=== PATIENT | female | born 2005 | race African-American/Black ===

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

== ENCOUNTER 2023-09-19 18:19 | Emergency (ER) | payer OTHER, SELFPAY ==
--- OUTSIDE RECORDS SUMMARY | 2023-09-19 18:23 | XMS REPORT | Continuity of Care Document ---
Author Name Unknown Address [address] [place] [address] [place]. [address] th[address] Address [address] [facility] [place]. 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
[2023-09-19] MEDS ORDERED: dexAMETHasone 10 MG/ML VIAL ONE (19:09)
[2023-09-19 19:13] LABS: SARS-CoV-2 Antigen CONTROL BLUE LINE VIS/BG OK; SARS-CoV-2 Antigen Rapid Res Negative (Negative)
--- NOTE | 2023-09-19 19:37 | ER ---
Nurse's Notes [facility] Name: Hasmukh Francis Age: 18 yrs Sex: Female : 2005 Arrival Date: 09/19/2023 Time: 18:19 Bed 10 Private MD: Diagnosis: Acute tonsillitis, unspecified Presentation: 09/18 18:39 Chief complaint: Patient states: swollen tonsils and fever. Coronavirus screen: At this as6 time, the client does not indicate any symptoms associated with coronavirus-19. Ebola Screen: No symptoms or risks identified at this time. Initial Sepsis Screen: Does the patient meet any 2 criteria? No. Patient's initial sepsis screen is negative. Does the patient have a suspected source of infection? No. Patient's initial sepsis screen is negative. Risk Assessment: Do you want to hurt yourself or someone else? Patient reports no desire to harm self or others. Onset of symptoms was September 15, 2023. 18:39 Method Of Arrival: Ambulatory as6 18:39 Acuity: PILAR 4 as6 Historical: - Allergies: 18:40 No Known Allergies; as6 - PMHx: 18:40 None; as6 - PSHx: 18:40 Foot - Right; as6 - Immunization history:: Adult Immunizations up to date. - Infectious Disease History:: Denies. - Social history:: Smoking status: Reported history of juuling and/or vaping. Screenin:18 [facility] ED Fall Risk Assessment (Adult) History of falling in the last 3 months, mb9 including since admission No falls in past 3 months (0 pts) Confusion or Disorientation No (0 pts) Intoxicated or Sedated No (0 pts) Impaired Gait No (0 pts) Mobility Assist Device Used No (0 pt) Altered Elimination No (0 pt) Score/Fall Risk Level 0 - 2 = Low Risk Oriented to surroundings, Maintained a safe environment, Educated pt \T\ family on fall prevention, incl call for assistance when getting out of bed. Abuse screen: Denies threats or abuse. Nutritional screening: No deficits noted. Tuberculosis screening: No symptoms or risk factors identified. Assessment: 19:18 General: Appears in no apparent distress. Behavior is calm, cooperative. Pain: mb9 Complains of pain in throat Quality of pain is described as throbbing. Neuro: Level of Consciousness is awake, alert, obeys commands, Oriented to person, place, time, situation, Appropriate for age. Cardiovascular: Patient's skin is warm and dry. Respiratory: Airway is patent Respiratory effort is even, unlabored, Respiratory pattern is regular, symmetrical. GI: No signs and/or symptoms were reported involving the gastrointestinal system. : No signs and/or symptoms were reported regarding the genitourinary system. EENT: Throat is reddened. Derm: Skin is pink, warm \T\ dry. Musculoskeletal: Range of motion: intact in all extremities. Vital Signs: 18:39 BP 135 / 76; Pulse 69; Resp 18; Temp 97.9; Pulse Ox 98% ; Weight 87.54 kg; Height 5 ft. as6 10 in. ; Pain 7/10; 19:45 BP 128 / 77; Pulse 74; Resp 18; Pulse Ox 100% on R/A; mb9 18:39 Body Mass Index 27.69 (87.54 kg, 177.8 cm) - Percentile 88.7 % as6 18:39 Pain Scale: Adult as6 ED Course: 18:23 Patient arrived in ED. im 18:24 Ana Santamaria FNP-C is [facility]. kb 18:24 Frank Rivera MD is Attending Physician. kb 18:39 Arm band placed on left wrist. as6 18:40 Triage completed. as6 18:50 SARS-COV-2 Antigen Rapid Sent. as6 18:50 Strep Sent. as6 18:50 Flu Sent. as6 19:08 Keely Alvarez, BERT is Primary Nurse. mb9 19:22 Placed in gown. Bed in low position. Call light in reach. Side rails up X 1. Client mb9 placed on continuous cardiac and pulse oximetry monitoring. NIBP monitoring applied. 19:23 No provider procedures requiring assistance completed. Patient did not have IV access mb9 during this emergency room visit. Administered Medications: 19:14 Not Given (Physician Discretion): Decadron - [id number] mg IVP once mb9 19:15 Drug: Dexamethasone IM 10 mg IM once Route: IM; Site: right deltoid; mb9 19:46 Follow up: Response: No adverse reaction mb9 Medication: 19:23 VIS not applicable for this client. mb9 Outcome: 19:37 Discharge ordered by . kb 19:45 Discharged to home ambulatory, mb9 19:45 Condition: stable 19:45 Discharge instructions given to patient, Instructed on discharge instructions, follow up and referral plans. Demonstrated understanding of instructions, follow-up care, medications, Prescriptions given X 1, 19:46 Patient left the ED. mb9 Signatures: Ana Santamaria, SECTION GANG WORKER-C SECTION GANG WORKER-Arsalan Riggins RN RN as6 Keely Alvarez RN RN mb9 Светлана Ledesma
--- NOTE | 2023-09-19 19:38 | EDPHYS ---
Physician Documentation [facility] Name: Hasmukh Francis Age: 18 yrs Sex: Female : 2005 Arrival Date: 09/19/2023 Time: 18:19 Bed 10 Private MD: ED Physician Frank Rivera HPI: 09/18 23:37 This 18 yrs old Black Female presents to ER via Ambulatory with complaints of Flu kb Symptoms. 23:37 Pt is a 18 year old female who presents for cough, congestion, chills and sore throat kb that started 4 days ago. Unknown fever. Denies n/v/d.. Historical: - Allergies: 18:40 No Known Allergies; as6 - PMHx: 18:40 None; as6 - PSHx: 18:40 Foot - Right; as6 - Immunization history:: Adult Immunizations up to date. - Infectious Disease History:: Denies. - Social history:: Smoking status: Reported history of juuling and/or vaping. ROS: 23:35 Constitutional: As per HPI kb Exam: 23:35 Constitutional: This is a well developed, well nourished patient who is awake, alert, kb and in no acute distress. Head/Face: Normocephalic, atraumatic. ENT: Moist Mucous membranes Cardiovascular: Regular rate Respiratory: Respirations even and unlabored. No increased work of breathing. Talking in full sentences Abdomen/GI: Soft, non-tender. No distention Skin: Warm, dry with normal turgor. Normal color. MS/ Extremity: Pulses equal, no cyanosis. Neurovascular intact. Full, normal range of motion. Neuro: Awake and alert, GCS 15, oriented to person, place, time, and situation. Moves all extremities. Normal gait. 23:36 ENT: Posterior pharynx: Tonsils: bilaterally enlarged, with erythema, swelling, that is kb moderate, erythema, that is moderate, Vital Signs: 18:39 BP 135 / 76; Pulse 69; Resp 18; Temp 97.9; Pulse Ox 98% ; Weight 87.54 kg; Height 5 ft. as6 10 in. ; Pain 7/10; 19:45 BP 128 / 77; Pulse 74; Resp 18; Pulse Ox 100% on R/A; mb9 18:39 Body Mass Index 27.69 (87.54 kg, 177.8 cm) - Percentile 88.7 % as6 18:39 Pain Scale: Adult as6 MDM: 18:24 Patient medically screened. kb 23:36 Differential diagnosis: strep, tonsillitis, flu, covid, uri. Data reviewed: vital kb signs, nurses notes. Counseling: I had a detailed discussion with the patient and/or guardian regarding the historical points, exam findings, and any diagnostic results supporting the discharge/admit diagnosis, lab results, the need for outpatient follow up, a family practitioner, to return to the emergency department if symptoms worsen or persist or if there are any questions or concerns that arise at home. 09/18 18:44 Order name: Flu; Complete Time: 19:17 as09/18 18:44 Order name: Strep; Complete Time: 19:17 as09/18 18:44 Order name: SARS-COV-2 Antigen Rapid; Complete Time: 19:17 as6 09/18 19:16 Order name: Throat Culture EDMS Administered Medications: 19:14 Not Given (Physician Discretion): Decadron - [id number] mg IVP once mb9 19:15 Drug: Dexamethasone IM 10 mg IM once Route: IM; Site: right deltoid; mb9 19:46 Follow up: Response: No adverse reaction mb9 Disposition Summary: 09/19/23 19:37 Discharge Ordered Notes: Location: Home kb Condition: Stable kb Diagnosis - Acute tonsillitis, unspecified kb Followup: kb - With: Emergency Department - When: As needed - Reason: Worsening of condition Followup: kb - With: Private Physician - When: 2 - 3 days - Reason: Recheck today's complaints, Continuance of care, Re-evaluation by your physician Discharge Instructions: - Tonsillitis, [id number] kb - Discharge Summary Sheet as6 Forms: - Medication Reconciliation Form kb - Antibiotic Education kb - Prescription Opioid Use kb - Patient Portal Instructions kb - Leadership Thank You Letter kb - Work release form as6 Prescriptions: - Augmentin 875-125 mg Oral Tablet - take 1 tablet ORAL route every 12 hours for 10 days; 20 tablet; Refills: 0, kb Product Selection Permitted Signatures: Dispatcher [employer] Ana Lara FNP-C FNP-Ckb Slawson, Ashby, RN RN as6 Breneman, Jessica, RN RN mb9 Corrections: (The following items were deleted from the chart) 23:36 23:35 Constitutional: This is a well developed, well nourished patient who is awake, kb alert, and in no acute distress. Head/Face: Normocephalic, atraumatic. ENT: Moist Mucous membranes Cardiovascular: Regular rate Respiratory: Respirations even and unlabored. No increased work of breathing. Talking in full sentences Abdomen/GI: Soft, non-tender. No distention Skin: Warm, dry with normal turgor. Normal color. MS/ Extremity: Pulses equal, no cyanosis. Neurovascular intact. Full, normal range of motion. Neuro: Awake and alert, GCS 15, oriented to person, place, time, and situation. Moves all extremities. Normal gait. kb 23:39 23:37 Pt is a 18 year old female who presents for cough, congestion, chills and sore kb throat that . kb
[2023-09-19 19:54] VITALS: TEMP 97.9
[2023-09-19 20:11] VITALS: BP 128/77; O2SAT 100
== END 2023-09-19 19:46 | disposition home or self-care (01) ==
LOC: ER 18:19
DX: J03.90 Acute tonsillitis, unspecified (principal); Z11.52 Encounter for screening for COVID-19
CPT/HCPCS: 36415; 87070; 87081; 87804; 87811; 96372; 99284; J1100

== ENCOUNTER 2024-04-11 09:16 | Emergency (ER) | payer OTHER, SELFPAY ==
--- OUTSIDE RECORDS SUMMARY | 2024-04-11 09:18 | XMS REPORT | Continuity of Care Document ---
Author Name Unknown Address [address] [facility]. [address] [facility] Address [address] [facility]. [address] [place] [address] Care Team Providers Care Word Processing Machine Operator Name Role Phone PCP, PATIENT DOES NOT HAVE A Primary Care Physic daron Unavailable TERESA MENJIVAR Attending Clinician Unavailable Problems Condition Name Condition Details Condition Category Status Onset Date Resolution Date Last Treatment Date Treating Clinician Comments Source Chlamydia infection Chlamydia infection Disease Active 10-10 00:00: 00 [facility] Amputation , foot, traumatic Amputation , foot, traumatic Disease Active [facility] Asthma Asthma Disease Active [facility] Allergies, Adverse Reactions, Alerts Allergy Name Allergy Type Status Severity Reaction(s) Onset Date Inactive Date Treating Clinician Comments Source Azithrom ycin Propensi ty to adverse reaction s Active Nausea and/or Vomiting 05-24 00:00: 00 [facility] AZITHROM YCIN DRUG INGREDI Active Med N/V 05-24 00:00: 00 [facility] Social History Social Habit Start Date Stop Date Quantity Comments Source History of tobacco use Passive smoker [facility] Alcoholic beverage intake 2023-10-07 00:00:00 2023-10-07 00:00:00 Lifetime non-drinker (finding) [facility] History of Social function 2023-10-07 00:00:00 2023-10-07 00:00:00 [facility] Sex assigned at 2005 00:00:00 2005 00:00:00 [facility] Smoking Status Start Date Stop Date Source Ex-smoker 2023-10-07 00:00:00 2023[facility]07 [facility] Ordered Medication Name Filled Medication Name Start Date Stop Date Current Medication? Ordering Clinician Indication Dosage Frequency Signature (SIG) Comments Components Source doxycycline monohydrate 100 mg capsule 10-10 00:00: 00 10-18 04:59 :00 No [id number] 100mg Take 1 capsule by mouth in the morning and 1 capsule in the evening. Do all this for 7 days. [facility] Vital Signs Vital Name Observation Time Observation Value Comments S ourrima Systolic blood pressure 2023-10-07 18:47:00 128 mm[Hg] [facility] Diastolic blood pressure 2023-10-07 18:47:00 87 mm[Hg] [facility] Heart rate 2023-10-07 18:47:00 80 /min [facility] Body temperature 2023-10-07 18:47:00 36.61 Reanna [facility] Respiratory rate 2023-10-07 18:47:00 16 /min [facility] Body height 2023-10-07 18:47:00 177.8 cm [facility] Body weight 2023-10-07 18:47:00 90.765 kg [facility] BMI 2023-10-07 18:47:00 28.71 kg/m2 [facility] Oxygen saturation in Arterial blood by Pulse oximetry 2023-10-07 18:47:00 97 /min [facility] Encounters Start Date/Time End Date/Time Encounter Type Admission Type Attending Clinicians Care Facility Care Department Encounter ID Source 2023-10-28 13:30:00 2023-10-28 13:30:00 Outpatient R TERESA MENJIVAR [facility] [id number] [facility] 2023-10-11 00:00:00 2023-10-11 14:23:51 Telephone Teresa Menjivar [facility] [id number] [facility] 2023-10-11 00:00:00 2023-10-11 07:56:38 Refpablo Teresa Menjivar [facility] [id number] 134 [id number] [facility] 2023-10-07 14:00:00 2023-10-07 14:18:40 Office Visit Teresa Menjivar [facility] [id number] [facility] 2023-10-07 14:00:00 2023-10-07 14:18:40 Outpatient R TERESA MENJIVAR [facility] [id number] [facility] 2023-01-07 10:32:42 2023-01-07 10:32:42 Outpatient SFA SFA [id number] Gilson Loaiza 2022-12-11 09:45:38 2022-12-11 09:45:38 Outpatient SFA SFA [id number] Gilson Loaiza 2022-11-19 15:49:54 2022-11-19 15:49:54 Outpatient SFA SFA [id number] Gilson Loaiza 2022-10-23 16:43:48 2022-10-23 16:43:48 Outpatient SFA SFA [id number] Gilson Loaiza
[2024-04-11] MEDS ORDERED: ONDANSETRON 4 MG (ODT) TAB ONE (09:40)
[2024-04-11 10:01] LABS: Specific Gravity 1.026 (1.005-1.030)
[2024-04-11 10:03] LABS: Specific Gravity 1.026 (1.005-1.030); Urine Bacteria <20 /HPF (<20); Urine Bilirubin NEGATIVE (Negative); Urine Blood 2+ (Negative); Urine Clarity Extremely Turbid (Clear); Urine Color Yellow (Yellow); Urine Culture Reflex Order NOT NEEDED; Urine Glucose NEGATIVE (Negative); Urine Ketones NEGATIVE (Negative); Urine Micro Reflex YN NO BILL MICROSCOPIC; Urine Mucus 2+ /HPF (None Seen); Urine Nitrite NEGATIVE (Negative); Urine Protein TRACE (Negative); Urine RBC <5 /HPF (None Seen); Urine Urobilinogen Normal (Normal); Urine WBC <5 /HPF (<5)
[2024-04-11 10:21] LABS: SARS-CoV-2 Antigen CONTROL BLUE LINE VIS/BG OK; SARS-CoV-2 Antigen Rapid Res Negative (Negative)
[2024-04-11 10:25] LABS: Absolute Eosinophils 0.1 K/uL (0-0.5); Absolute Lymphocytes (CBC) 1.3 K/uL (0.7-4.9); Absolute Monocytes 0.8 K/uL (0.1-1.3); Absolute Neutrophil 2.5 K/uL (1.8-8.0); Basophils % 0.3 % (0-1.3); Eosinophils % 2.3 % (0-4.4); Hemoglobin 11.5 g/dL (12.0-15.0); Lymphocytes % 28.1 % (15.3-44.8); MCH 25.7 pg (27.0-35.0); MCHC 32.8 g/dL (32.0-36.0); MCV 78.2 fL (80-100); MPV 8.4 fL (7.6-11.3); Monocytes % 16.7 % (3.3-12.3); Neutrophils % 52.6 % (41.7-73.7); Nucleated Red Blood Cells % 0.1 % (0-0); Platelets 256 thou/uL (152-406); RBC Red Blood Cell Count 4.47 M/uL (3.86-4.86); Red Cell Distribution Width 15.7 % (12.1-15.2)
[2024-04-11 10:39] LABS: Anion Gap 7.2 mEq/L (5.0-15.0); Potassium 3.2 mEq/L (3.5-5.1)
--- NOTE | 2024-04-11 10:42 | EDPHYS ---
Physician Documentation [facility] Name: Adriana White Age: 18 yrs Sex: Female : 2005 Arrival Date: 04/11/2024 Time: 09:16 Bed 20 Private MD: ED Physician Daniel Betancourt HPI: 04/11 09:24 This 18 yrs old Black Female presents to ER via Unassigned with complaints of Vomiting. ec2 09:24 Patient arrives today for evaluation of nausea and vomiting. Reports that she is been ec2 having several days of symptoms. Recently had known flu exposures. No cough and cold symptoms, is having subjective fevers and chills. No urinary complaints. No medical problems or medication allergies.. 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 - Infectious Disease History:: Denies. - Social history:: Smoking status: Reported history of juuling and/or vaping. ROS: 09:24 Constitutional: as per hpi ec2 Exam: 09:24 Constitutional: GEN: NAD Head: atraumatic Eyes: EOMI Ears: External ears are ec2 normal. CV: regular rate LUNGS: no respiratory distress ABD: non-distended, soft, nontender, not guarding, not rigid SKIN: no evidence of rashes MSK: no evidence of trauma Vital Signs: 09:25 BP 119 / 71; Pulse 66; Resp 16 S; Temp 97.4(O); Pulse Ox 98% on R/A; Weight 104.33 kg kc6 (R); Height 5 ft. 10 in. (R); 10:54 BP 119 / 71; Pulse 76; Resp 16; Pulse Ox 98% on R/A; db 09:25 Body Mass Index 33.00 (104.33 kg, 177.8 cm) kc6 MDM: 09:19 Medical Screening Exam initiated ec2 09:24 Data reviewed: vital signs, nurses notes. ED course: Patient arrives today for ec2 evaluation of nausea and vomiting. Examination yields well-appearing nontoxic individuals otherwise in no acute distress. Will obtain viral swabs, treat with Zofran. Suspect viral infection. Additionally considered other processes such as cholecystitis, appendicitis, diverticulitis however patient with reassuring abdominal examination. Additionally considering .. 10:41 ED course: Labs with slight hypokalemia, will give the patient potassium, discharge ec2 home, suspect viral infection. Return precautions given. Patient also with multiple sick contacts with the same symptoms.. 04/11 09:20 Order name: UAM; Complete Time: 10:11 ec2 04/11 09:20 Order name: Test, Urine; Complete Time: 10:02 ec2 04/11 09:24 Order name: Influenza Screen (a \T\ B); Complete Time: 10:25 ec2 04/11 09:24 Order name: SARS RAPID; Complete Time: 10:25 ec2 04/11 09:29 Order name: CBC with Diff; Complete Time: 10:40 ec2 04/11 09:29 Order name: BMP; Complete Time: 10:40 ec2 04/11 09:29 Order name: IV; Complete Time: 10:00 ec2 04/11 10:07 Order name: Labs - recollect needed: recollect all the blood/ hemolyzed per Hector gamble Complete Time: 10:28 Administered Medications: 09:54 Drug: Ondansetron Oral Disintegrating Tablet Oral Disintegrating Tablet 4 mg PO once rs5 Route: PO; 10:28 Follow up: Response: No adverse reaction; Nausea is decreased db 10:45 Drug: Potassium Chloride PO 40 mEq PO once Route: PO; db 10:55 Follow up: Response: No adverse reaction db Disposition Summary: 04/11/24 10:41 Discharge Ordered Notes: Location: Home ec2 Condition: Stable ec2 Diagnosis - Viral infection, unspecified ec2 Followup: ec2 - With: Private Physician - When: - Reason: Re-evaluation by your physician Discharge Instructions: - Discharge Summary Sheet ec2 - Potassium Content of Foods ec2 - Viral Illness, Adult ec2 Forms: - Work release form db - Medication Reconciliation Form ec2 - Antibiotic Education ec2 - Prescription Opioid Use ec2 - Patient Portal Instructions ec2 - Leadership Thank You Letter ec2 Prescriptions: - Zofran 4 mg Oral Tablet - take 1 tablet ORAL route every 12 hours As needed; 20 tablet; Refills: 0, ec2 Product Selection Permitted Signatures: Dispatcher [employer] EDMS Rosario Francisco Kaitlyn RN RN kc6 Priscilla Weiss RN RN db Cesar Torres RN RN rs5 Daniel Betancourt MD MD ec2 Corrections: (The following items were deleted from the chart) :24 09:24 Influenza Screen (A \T\ B)+BA.LAB.BRZ ordered. EDMS EDMS : 09:24 SARS-COV-2 Antigen Rapid+I.LAB.BRZ ordered. EDMS EDMS
--- NOTE | 2024-04-11 10:42 | ER ---
Nurse's Notes [facility] Name: Adriana White Age: 18 yrs Sex: Female : 2005 Arrival Date: 04/11/2024 Time: 09:16 Bed 20 Private MD: Diagnosis: Viral infection, unspecified Presentation: 04/11 09:25 Chief complaint: Patient states: n/v/d x3 days with a syncopal episode on the . [facility] Coronavirus screen: At this time, the client does not indicate any symptoms associated with coronavirus-19. Ebola Screen: No symptoms or risks identified at this time. Initial Sepsis Screen: Does the patient meet any 2 criteria? No. Patient's initial sepsis screen is negative. Does the patient have a suspected source of infection? No. Patient's initial sepsis screen is negative. Risk Assessment: Do you want to hurt yourself or someone else? Patient reports no desire to harm self or others. Onset of symptoms was April 11, 2024. 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 - Infectious Disease History:: Denies. - Social history:: Smoking status: Reported history of juuling and/or vaping. Screenin:38 [facility] ED Fall Risk Assessment (Adult) History of falling in the last 3 months, db including since admission No falls in past 3 months (0 pts) Confusion or Disorientation No (0 pts) Intoxicated or Sedated No (0 pts) Impaired Gait No (0 pts) Mobility Assist Device Used No (0 pt) Altered Elimination No (0 pt) Score/Fall Risk Level 0 - 2 = Low Risk Oriented to surroundings, Maintained a safe environment. Abuse screen: Denies threats or abuse. Denies injuries from another. Nutritional screening: No deficits noted. Tuberculosis screening: No symptoms or risk factors identified. Assessment: 09:38 Reassessment: Patient appears in no apparent distress at this time. Patient and/or db family updated on plan of care and expected duration. Pain level reassessed. Patient is alert, oriented x 3, equal unlabored respirations, skin warm/dry/pink. General: Appears in no apparent distress. comfortable, Behavior is calm, cooperative. Pain: Denies pain. Neuro: Level of Consciousness is awake, alert, obeys commands, Oriented to person, place, time, situation. Respiratory: Airway is patent Respiratory effort is even, unlabored, Respiratory pattern is regular, symmetrical. GI: Abdomen is flat, non-distended, Reports nausea, vomiting. 10:29 Reassessment: Patient appears in no apparent distress at this time. Patient and/or db family updated on plan of care and expected duration. Pain level reassessed. Patient is alert, oriented x 3, equal unlabored respirations, skin warm/dry/pink. 10:54 Reassessment: Patient appears in no apparent distress at this time. Patient and/or db family updated on plan of care and expected duration. Pain level reassessed. Patient is alert, oriented x 3, equal unlabored respirations, skin warm/dry/pink. Patient states feeling better. Patient states symptoms have improved. Vital Signs: 09:25 BP 119 / 71; Pulse 66; Resp 16 S; Temp 97.4(O); Pulse Ox 98% on R/A; Weight 104.33 kg [facility] (R); Height 5 ft. 10 in. (R); 10:54 BP 119 / 71; Pulse 76; Resp 16; Pulse Ox 98% on R/A; db 09:25 Body Mass Index 33.00 (104.33 kg, 177.8 cm) [facility] ED Course: 09:17 Patient arrived in ED. ra3 09:19 Daniel Betancourt MD is Attending Physician. ec2 09:27 Triage completed. kc6 09:27 Arm band placed on. kc6 09:33 Priscilla Weiss, BERT is Primary Nurse. db 09:38 Patient has correct armband on for positive identification. Bed in low position. Call db light in reach. Side rails up X 1. Warm blanket given. Pillow given. 09:38 No provider procedures requiring assistance completed. db 09:45 Initial lab(s) drawn, by me, sent to lab. Urine collected: clean catch specimen, COVID db swab sent to lab. Flu and/or RSV swab sent to lab. Missed attempt(s): 22 gauge in right antecubital area. Bleeding controlled, band aid applied, catheter tip intact. 10:00 Inserted saline lock: 22 gauge in left forearm, using aseptic technique. Blood em1 collected. Flushed with 10 mL NS. 10:54 Provided Education on: DISCHARGE AND PRESCRIPTIONS. db 10:54 IV discontinued, intact, bleeding controlled, No redness/swelling at site. db Administered Medications: 09:54 Drug: Ondansetron Oral Disintegrating Tablet Oral Disintegrating Tablet 4 mg PO once rs5 Route: PO; 10:28 Follow up: Response: No adverse reaction; Nausea is decreased db 10:45 Drug: Potassium Chloride PO 40 mEq PO once Route: PO; db 10:55 Follow up: Response: No adverse reaction db Medication: 09:38 VIS not applicable for this client. db Outcome: 10:41 Discharge ordered by . ec2 10:54 Discharged to home ambulatory, with family, db 10:54 Condition: stable 10:54 Discharge instructions given to patient, Instructed on Prescriptions given X 1, 10:56 Patient left the ED. db Signatures: Emeka Dubon em1 Maribell Jewell RN RN kc6 Priscilla Weiss RN RN db Cesar Torres, RN RN rs5 Daniel Betancourt MD MD ec2 Zeynep Vazquez 3
[2024-04-11] MEDS ORDERED: POTASSIUM CL SA 10 MEQ TAB PO ONE (10:49)
[2024-04-11 11:15] VITALS: BP 119/71; O2SAT 98
== END 2024-04-11 10:56 | disposition home or self-care (01) ==
LOC: ER 09:16
DX: B34.9 Viral infection, unspecified (principal); Z11.52 Encounter for screening for COVID-19
CPT/HCPCS: 36415; 80048; 81001; 81025; 85025; 87804; 87811; 99284; Q0162

== ENCOUNTER 2024-11-13 12:15 | Emergency (ER) | payer SELFPAY ==
--- OUTSIDE RECORDS SUMMARY | 2024-11-13 12:18 | XMS REPORT | Continuity of Care Document ---
Author Name Unknown Address [address] [place] [address] Organization [facility] [place] Address [address] [place] [address] Care Team Providers Care Mechanical Meter Tester Name Role Phone PCP, PATIENT DOES NOT HAVE A Primary Care Physic daron Unavailable SERAFIN MENJIVAR Attending Clinician Unavailable Problems Condition Name Condition Details Condition Category Status Onset Date Resolution Date Last Treatment Date Treating Clinician Comments Source Chlamydia infection Chlamydia infection Disease Active 10-10 00:00: 00 [facility] Amputation , foot, traumatic Amputation , foot, traumatic Disease Active [facility] Asthma Asthma Disease Active [facility] Allergies, Adverse Reactions, Alerts Allergy Name Allergy Type Status Severity Reaction(s) Onset Date Inactive Date Treating Clinician Comments Source Azithrom ycin Propensi ty to adverse reaction s Active Nausea and/or Vomiting 05-24 00:00: 00 [facility] AZITHROM YCIN DRUG INGREDI Active Med N/V 05-24 00:00: 00 [facility] Social History Social Habit Start Date Stop Date Quantity Comments Source History of tobacco use Passive smoker [facility] Alcoholic beverage intake 2023-10-07 00:00:00 2023-10-07 00:00:00 Lifetime non-drinker (finding) [facility] History of Social function 2023-10-07 00:00:00 2023-10-07 00:00:00 [facility] Sex assigned at 2005 00:00:00 2005 00:00:00 [facility] Smoking Status Start Date Stop Date Source Ex-smoker 2023-10-07 00:00:00 [facility]23[facility] Medications Ordered Medication Name Filled Medication Name Start Date Stop Date Current Medication? Ordering Clinician Indication Dosage Frequency Signature (SIG) Comments Components Source doxycycline monohydrate 100 mg capsule 10-10 00:00: 00 10-18 04:59 :00 No [id number] 100mg Take 1 capsule by mouth in the morning and 1 capsule in the evening. Do all this for 7 days. [facility] Vital Signs Vital Name Observation Time Observation Value Comments S ource Systolic blood pressure 2023-10-07 18:47:00 128 mm[Hg] [facility] Diastolic blood pressure 2023-10-07 18:47:00 87 mm[Hg] [facility] Heart rate 2023-10-07 18:47:00 80 /min [facility] Body temperature 2023-10-07 18:47:00 36.61 Reanna [facility] Respiratory rate 2023-10-07 18:47:00 16 /min [facility] Body height 2023-10-07 18:47:00 177.8 cm [facility] Body weight 2023-10-07 18:47:00 90.765 kg [facility] BMI 2023-10-07 18:47:00 28.71 kg/m2 [facility] Oxygen saturation in Arterial blood by Pulse oximetry 2023-10-07 18:47:00 97 /min [facility] Encounters Start Date/Time End Date/Time Encounter Type Admission Type Attending Clinicians Care Facility Care Department Encounter ID Source 2023-10-28 13:30:00 2023-10-28 13:30:00 Outpatient R SERAFIN MENJIVAR [facility] [id number] [facility] 2023-10-11 00:00:00 2023-10-11 14:23:51 Telephone Serafin Menjivar [facility] [id number] [facility] 2023-10-11 00:00:00 2023-10-11 07:56:38 Refill Serafin Menjivar [facility] [id number] [facility] 2023-10-07 14:00:00 2023-10-07 14:18:40 Office Visit Serafin Menjivar [facility] [id number] [facility] 2023-10-07 14:00:00 2023-10-07 14:18:40 Outpatient R SERAFIN MENJIVAR [facility] [id number] [facility] 2023-01-07 10:32:42 2023-01-07 10:32:42 Outpatient [facility] [id number] Gilson Loaiza 2022-12-11 09:45:38 2022-12-11 09:45:38 Outpatient [facility] [id number] Gilson Loaiza 2022-11-19 15:49:54 2022-11-19 15:49:54 Outpatient [place] [id number] Gilson Loaiza 2022-10-23 16:43:48 2022-10-23 16:43:48 Outpatient [facility] [id number] Gilson Loaiza Notes Date/Time Note Provider Source 2023-10-11 14:15:27 Verified and discussed + chlamydia results with pt. Rx has been sent to [facility] in [place]. She will discuss with partner and advise treatment. If he is unable to follow up with pcp, she will call back with his name, and allergies and the office can treat partner as well. Pt advised no sex until both partners are treated. Pt was at work with background noise. Will send pt a Vol[employer] message to schedule repeat testing in 3 months. Yulia Richey RN [facility] 2023-10-11 13:18:15 Pt returning a call reg. Her lab results. Also, she have question reg the prescription that was sent to the pharmacy today. Gina Noriega [facility] 2023-10-11 07:55:[address] - [place]. [facility]
[2024-11-13] MEDS ORDERED: LIDOCAINE 1% 20 ML MDV ONE (12:44)
--- NOTE | 2024-11-13 13:54 | ER ---
Nurse's Notes [facility] Name: José Miguel Francis Age: 19 yrs Sex: Female : 2005 Arrival Date: 11/13/2024 Time: 12:15 Bed 9 Private MD: Diagnosis: Pilonidal cyst with abscess Presentation: 11/13 12:31 Chief complaint: Patient states: BUTTOCK ABSCESS SINCE SATURDAY. Coronavirus screen: At bp this time, the client does not indicate any symptoms associated with coronavirus-19. Ebola Screen: No symptoms or risks identified at this time. Initial Sepsis Screen: Does the patient meet any 2 criteria? No. Patient's initial sepsis screen is negative. Does the patient have a suspected source of infection? No. Patient's initial sepsis screen is negative. Risk Assessment: Do you want to hurt yourself or someone else? Patient reports no desire to harm self or others. Onset of symptoms is unknown. 12:31 Method Of Arrival: Ambulatory bp 12:31 Acuity: PILAR 3 bp Triage Assessment: 12:33 General: Appears in no apparent distress. uncomfortable, Behavior is calm, cooperative, bp appropriate for age. Pain: Complains of pain in buttocks. EENT: No deficits noted. Neuro: No deficits noted. Cardiovascular: No deficits noted. Respiratory: No deficits noted. GI: No signs and/or symptoms were reported involving the gastrointestinal system. : No signs and/or symptoms were reported regarding the genitourinary system. Derm: Abscess located on buttocks is quarter sized. Musculoskeletal: No deficits noted. Historical: - Allergies: 12:33 No Known Allergies; bp - PMHx: 13:40 None; aa5 - PSHx: 12:33 Foot - Right; bp - Immunization history:: Adult Immunizations up to date. - Infectious Disease History:: Denies. - Social history:: Smoking status: . Screenin:00 [facility] ED Fall Risk Assessment (Adult) History of falling in the last 3 months, aa5 including since admission No falls in past 3 months (0 pts) Confusion or Disorientation No (0 pts) Intoxicated or Sedated No (0 pts) Impaired Gait No (0 pts) Mobility Assist Device Used No (0 pt) Altered Elimination No (0 pt) Score/Fall Risk Level 0 - 2 = Low Risk Oriented to surroundings, Maintained a safe environment, Educated pt \T\ family on fall prevention, incl call for assistance when getting out of bed, Assessed \T\ reinforced patient's understanding of fall precautions. Abuse screen: Denies threats or abuse. Nutritional screening: No deficits noted. Tuberculosis screening: No symptoms or risk factors identified. Assessment: 13:00 General: Appears comfortable, Behavior is calm, cooperative. Pain: Complains of pain in aa5 right perineal area Pain currently is 7 out of 10 on a pain scale. Quality of pain is described as tender, Is continuous, Aggravated by increased activity, repositioning. Neuro: Level of Consciousness is awake, alert, obeys commands, Oriented to person, place, time, situation. Cardiovascular: Heart tones S1 S2 present Rhythm is regular. Respiratory: Airway is patent Respiratory effort is even, unlabored, Respiratory pattern is regular, symmetrical. GI: No signs and/or symptoms were reported involving the gastrointestinal system. : No signs and/or symptoms were reported regarding the genitourinary system. EENT: No signs and/or symptoms were reported regarding the EENT system. Derm: Skin is pink, warm \T\ dry. Abscess located on right perineal area, no drainage noted. is quarter sized. Musculoskeletal: Range of motion: intact in all extremities. 14:06 Reassessment: Patient is alert, oriented x 3, equal unlabored respirations, skin aa5 warm/dry/pink. Patient states feeling better. Patient states symptoms have improved. Vital Signs: 12:31 BP 146 / 91; Pulse 87; Resp 16; Temp 98; Pulse Ox 97% ; bp ED Course: 12:19 Patient arrived in ED. im 12:27 Kannan Butts FNP-C is PHCP. dr5 12:27 Balbir Yuan MD is Attending Physician. dr5 12:33 Triage completed. bp 12:33 Arm band placed on. bp 13:00 Patient has correct armband on for positive identification. Placed in gown. Bed in low aa5 position. Call light in reach. Side rails up X2. Adult w/ patient. 13:09 Teresa Harvey, RN is Primary Nurse. aa5 13:40 Assist provider with I \T\ D: of an abscess on right perineal Set up I\T\D tray. Performed aa 5 by Kannan Butts DEWATERING FILTERING SUPERVISOR-C Dressing with 4X4s, Patient tolerated well. 13:40 Patient did not have IV access during this emergency room visit. aa5 Administered Medications: 13:40 Drug: Lidocaine Infiltration (1 %) 20 ml 20 ml Infiltration once; to bedside {Note: aa5 Administered by PET AMBASSADOR for I\T\D .} Volume: 20 ml; Route: Infiltration; Medication: 13:00 VIS not applicable for this client. aa5 Outcome: 13:54 Discharge ordered by MD. matthews 14:06 Discharged to home ambulatory, with family, aa5 14:06 Condition: improved 14:06 Discharge instructions given to patient, Instructed on discharge instructions, follow up and referral plans. medication usage, wound care, Demonstrated understanding of instructions, follow-up care, medications, wound care, Prescriptions given X 1, 14:09 Patient left the ED. aa5 Signatures: Teresa Harvey, RN RN aa5 Elbert Miles, BERT RN Светлана Payton Dustin, DEWATERING FILTERING SUPERVISOR-C DEWATERING FILTERING SUPERVISOR-Cdr5 Corrections: (The following items were deleted from the chart) 14:09 14:06 Reassessment: Patient is alert, oriented x 3, equal unlabored respirations, skin aa5 warm/dry/pink. aa5
--- NOTE | 2024-11-13 13:54 | EDPHYS ---
Physician Documentation [facility] Name: José Miguel Francis Age: 19 yrs Sex: Female : 2005 Arrival Date: 11/13/2024 Time: 12:15 Bed 9 Private MD: ED Physician Balbir Yuan HPI: 11/13 15:47 This 19 yrs old Black Female presents to ER via Ambulatory with complaints of Cyst - dr5 low back. 15:47 Onset: The symptoms/episode began/occurred 5 day(s) ago. Patient is a 19-year-old dr5 female with no possible history coming in with cyst to her buttocks that started Saturday. Patient reports that each day is worsening. Patient denies fever, difficulty having bowel movements.. Historical: - Allergies: 12:33 No Known Allergies; bp - PMHx: 13:40 None; aa5 - PSHx: 12:33 Foot - Right; bp - Immunization history:: Adult Immunizations up to date. - Infectious Disease History:: Denies. - Social history:: Smoking status: . ROS: 15:47 Constitutional: as per hpi dr5 Exam: 15:47 Constitutional: This is a well developed, well nourished patient who is awake, alert, dr5 and in no acute distress. Head/Face: Normocephalic, atraumatic. Eyes: Pupils equal round and reactive to light, extra-ocular motions intact. Lids and lashes normal. Conjunctiva and sclera are non-icteric and not injected. Cornea within normal limits. Periorbital areas with no swelling, redness, or edema. Neck: Trachea midline, no thyromegaly or masses palpated, and no cervical lymphadenopathy. Supple, full range of motion without nuchal rigidity, or vertebral point tenderness. No Meningismus. Chest/axilla: Normal chest wall appearance and motion. Nontender with no deformity. No lesions are appreciated. Cardiovascular: Regular rate and rhythm with a normal S1 and S2. Normal PMI, no JVD. No pulse deficits. Respiratory: Lungs have equal breath sounds bilaterally, clear to auscultation. No rales, rhonchi or wheezes noted. No increased work of breathing, no retractions or nasal flaring. Abdomen/GI: Soft, non-tender, non-distended Back: No spinal tenderness. No costovertebral tenderness. Full range of motion. MS/ Extremity: Pulses equal, no cyanosis. Neurovascular intact. Full, normal range of motion. Neuro: Awake and alert, GCS 15, oriented to person, place, time, and situation. Cranial nerves II-XII grossly intact. Motor strength 5/5 in all extremities. Sensory grossly intact. Cerebellar exam normal. Normal gait. 15:47 Skin: abscess, that is moderate sized, of the gluteal cleft, with drainage, with fluctuance, that is moderate, Right lower gluteal cleft, induration, that is moderate is noted, located on the buttocks, Vital Signs: 12:31 BP 146 / 91; Pulse 87; Resp 16; Temp 98; Pulse Ox 97% ; bp Procedures: 15:47 I \T\ D: Incision and drainage was performed for an abscess of the right perirectal area. dr5 Prepped with alcohol, Anesthetized with 3 ml's 1% Lidocaine. Incised with #11 blade. Drained large amount purulent fluid. bloody fluid. Loculations removed. Packed with Dressing: non-Adherent dressing, the patient tolerated the procedure well, Loculations were broken up and removed.. MDM: 12:27 Medical Screening Exam initiated dr5 15:47 Differential diagnosis: viral Infection, bacterial infection, URI, Abscess, Cellulitis, dr5 Pilonidal Cyst. Data reviewed: vital signs, nurses notes. Consideration of Admission/Observation Escalation of care including admission/observation considered. Discussion considered patient found to have tracking of cellulitis and/or fever. I considered the following discharge prescriptions or medication management in the emergency department I discussed and recommended Over The Counter medications, Medications were administered in the Emergency Department. See MAR. Care significantly affected by the following Social Determinants of Health: Poor access to healthcare and/or lack of insurance, Poor access to transportation, Problems related to employment. Counseling: I had a detailed discussion with the patient and/or guardian regarding the historical points, exam findings, and any diagnostic results supporting the discharge/admit diagnosis, the presence of at least one elevated blood pressure reading (>120/80) during this emergency department visit, the need for outpatient follow up, for definitive care, a family practitioner, to return to the emergency department if symptoms worsen or persist or if there are any questions or concerns that arise at home. Medication response: Lidocaine. Response to treatment: the patient's symptoms have resolved after treatment. Special discussion: I have referred the patient to see his PCP for further evaluation of high blood pressure. I discussed with the patient/guardian in detail that at this point there is no indication for admission to the hospital. It is understood, however, that if the symptoms persist or worsen the patient needs to return immediately for re-evaluation. Based on the history and exam findings, there is no indication for further emergent testing or inpatient evaluation. I discussed with the patient/guardian the need to see the primary care provider for further evaluation of the symptoms. ED course: I\T\D completed with mother at bedside as well as BERT Ramirez. Moderate amount of purulent drainage came out with relief of symptoms. Will place patient on antibiotics. Recommend patient follow-up primary care doctor this next week for reassessment. Strict ER precautions were given. All question answered.. 11/13 12:33 Order name: Incision \T\ Drainage Setup; Complete Time: 13:09 dr5 Administered Medications: 13:40 Drug: Lidocaine Infiltration (1 %) 20 ml 20 ml Infiltration once; to bedside {Note: aa5 Administered by FARMWORKER MACHINE for I\T\D .} Volume: 20 ml; Route: Infiltration; Disposition: 16:29 Co-signature as Attending Physician, Balbir Yuan MD I agree with the assessment and jr11 plan of care. Disposition Summary: 11/13/24 13:54 Discharge Ordered Notes: Location: Home dr5 Condition: Stable dr5 Diagnosis - Pilonidal cyst with abscess dr5 Followup: dr5 - With: Emergency Department - When: As needed - Reason: Worsening of condition Followup: dr5 - With: Private Physician - When: 1 - 2 days - Reason: Recheck today's complaints, Continuance of care, Re-evaluation by your physician Discharge Instructions: - Discharge Summary Sheet dr5 - Incision and Drainage dr5 - Pilonidal Cyst Drainage, Care After dr5 Forms: - Medication Reconciliation Form dr5 - Antibiotic Education dr5 - Patient Portal Instructions dr5 - Leadership Thank You Letter dr5 Prescriptions: - Cephalexin 500 mg Oral Capsule - take 1 capsule ORAL route every 12 hours for 10 days; 20 capsule; Refills: 0, dr5 Product Selection Permitted Signatures: Teresa Harvey RN BERT aa5 Elbert Miles RN RN bp Rosillo, Jose, MD MD [id number] Kannan Butts FNP-C FNP-Cdr5
[2024-11-13 14:16] VITALS: BP 146/91; TEMP 98; O2SAT 97
== END 2024-11-13 14:09 | disposition home or self-care (01) ==
LOC: ER 12:15
PROC: 0H98XZZ Drainage of Buttock Skin, External Approach (ICD-10-PCS; principal; 2024-11-13)
DX: L05.01 Pilonidal cyst with abscess (principal)
CPT/HCPCS: 99283; J2003

== ENCOUNTER 2024-11-17 10:38 | Emergency (ER) | payer SELFPAY ==
--- OUTSIDE RECORDS SUMMARY | 2024-11-17 10:49 | XMS REPORT | Continuity of Care Document ---
Author Name Unknown Address [address] [facility] [place] [address] Organization [facility] [place] Address [address] [facility] [address] [place] [address] Care Team Providers Care Dry Cleaning Supervisor Name Role Phone PCP, PATIENT DOES NOT HAVE A Primary Care Physic daron Unavailable SERAFIN MENJIVAR Attending Clinician Unavailable Problems Condition Name Condition Details Condition Category Status Onset Date Resolution Date Last Treatment Date Treating Clinician Comments Source Chlamydia infection Chlamydia infection Disease Active 10-10 00:00: 00 [facility] Amputation , foot, traumatic Amputation , foot, traumatic Disease Active [facility] Asthma Asthma Disease Active [facility] Allergies, Adverse Reactions, Alerts Allergy Name Allergy Type Status Severity Reaction(s) Onset Date Inactive Date Treating Clinician Comments Source Azithrom ycin Propensi ty to adverse reaction s Active Nausea and/or Vomiting 05-24 00:00: 00 [facility] AZITHROM YCIN DRUG INGREDI Active Med N/V 05-24 00:00: 00 [facility] Social History Social Habit Start Date Stop Date Quantity Comments Source History of tobacco use Passive smoker [facility] Alcoholic beverage intake 2023-10-07 00:00:00 2023-10-07 00:00:00 Lifetime non-drinker (finding) [facility] History of Social function 2023-10-07 00:00:00 2023-10-07 00:00:00 [facility] Sex assigned at 2005 00:00:00 2005 00:00:00 [facility] Smoking Status Start Date Stop Date Source Ex-smoker 2023-10-07 00:00:00 [facility]23[facility] Medic[facility] Ordered Medication Name Filled Medication Name Start Date Stop Date Current Medication? Ordering Clinician Indication Dosage Frequency Signature (SIG) Comments Components Source doxycycline monohydrate 100 mg capsule 10-10 00:00: 00 10-18 04:59 :00 No [id number] 100mg Take 1 capsule by mouth in the morning and 1 capsule in the evening. Do all this for 7 days. [facility] Vital Signs Vital Name Observation Time Observation Value Comments S jobrima Systolic blood pressure 2023-10-07 18:47:00 128 mm[Hg] [facility] Diastolic blood pressure 2023-10-07 18:47:00 87 mm[Hg] [facility] Heart rate 2023-10-07 18:47:00 80 /min [facility] Body temperature 2023-10-07 18:47:00 36.61 Reanna [facility] Respiratory rate 2023-10-07 18:47:00 16 /min [facility] Body height 2023-10-07 18:47:00 177.8 cm [facility] Body weight 2023-10-07 18:47:00 90.765 kg [facility] BMI 2023-10-07 18:47:00 28.71 kg/m2 [facility] Oxygen saturation in Arterial blood by Pulse oximetry 2023-10-07 18:47:00 97 /min [facility] Encounters Start Date/Time End Date/Time Encounter Type Admission Type Attending Clinicians Care Facility Care Department Encounter ID Source 2023-10-28 13:30:00 2023-10-28 13:30:00 Outpatient R SERAFIN MENJIVAR [facility] [id number] [facility] 2023-10-11 00:00:00 2023-10-11 14:23:51 Telephone Serafin Menjivar [facility] [id number] [facility] 2023-10-11 00:00:00 2023-10-11 07:56:38 Refill Serafin Menjivar [facility] [id number] [facility] 2023-10-07 14:00:00 2023-10-07 14:18:40 Office Visit Serafin Menjivar [facility] [id number] [facility] 2023-10-07 14:00:00 2023-10-07 14:18:40 Outpatient R SERAFIN MENJIVAR [facility] [id number] [facility] 2023-01-07 10:32:42 2023-01-07 10:32:42 Outpatient [facility] [id number] Gilson Loaiza 2022-12-11 09:45:38 2022-12-11 09:45:38 Outpatient [facility] [id number] Gilson Loaiza 2022-11-19 15:49:54 2022-11-19 15:49:54 Outpatient [facility] [id number] Gilson Loaiza 2022-10-23 16:43:48 2022-10-23 16:43:48 Outpatient [facility] [id number] Gilson Loaiza Notes Date/Time Note Provider Source 2023-10-11 14:15:27 Verified and discussed + chlamydia results with pt. Rx has been sent to [facility] in [place]. She will discuss with partner and advise treatment. If he is unable to follow up with pcp, she will call back with his name, and allergies and the office can treat partner as well. Pt advised no sex until both partners are treated. Pt was at work with background noise. Will send pt a [employer] message to schedule repeat testing in 3 months. Yulia Richey RN [facility] 2023-10-11 13:18:15 Pt returning a call reg. Her lab results. Also, she have question reg the prescription that was sent to the pharmacy today. Gina Noriega [facility] 2023-10-11 07:55:[address] - [place]. [facility]
--- NOTE | 2024-11-17 11:41 | RAD REPORT ---
EXAMINATION: XR RIGHT ANKLE CLINICAL INDICATION: . PAIN TECHNIQUE:Two view radiograph of the right ankle were obtained. COMPARISON: No prior exam. FINDINGS: Presumed previous amputation at the level of the proximal metatarsals. Mild soft tissue sw elling. No fracture seen.
--- NOTE | 2024-11-17 11:48 | EDPHYS ---
Physician Documentation [facility] Name: José Miguel Francis Age: 19 yrs Sex: Female : 2005 Arrival Date: 11/17/2024 Time: 10:38 Bed 11 Private MD: ED Physician Jevon Serna HPI: 11/17 11:15 This 19 yrs old Black Female presents to ER via Wheelchair with complaints of Ankle sb4 Injury. 11:15 Twisted ankle 2 days ago after stepping in a hole. Complains of pain with ambulation, sb4 but is able to ambulate without assistance. 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 Does not believe it is broken but needs to have it evaluated in order to go back to work. 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 - Infectious Disease History:: Denies. - Social history:: Smoking status: Reported history of juuling and/or vaping. ROS: 11:15 Constitutional: Negative for fever, chills, and weight loss, sb4 11:15 MS/extremity: Positive for injury or acute deformity, pain, swelling, of the right ankle, 11:15 All other systems are negative, Exam: 11:28 Constitutional: This is a well developed, well nourished patient who is awake, alert, sb4 and in no acute distress. Head/Face: Normocephalic, atraumatic. Eyes: Extra-ocular motions intact. Periorbital areas with no swelling, redness, or edema. ENT: Mucous membranes moist. Respiratory: No increased work of breathing, no retractions or nasal flaring. Skin: Warm, dry with normal turgor. Normal color with no rashes, no lesions, and no evidence of cellulitis. 11:28 Musculoskeletal/extremity: Perfusion: the extremity is normally perfused throughout, Sensation intact. Joints: the right ankle displays swelling, Weight bearing: able to fully bear weight, Postsurgical changes at the right midfoot. 11:35 Neuro: Gait: is steady, sb4 Vital Signs: 11:00 BP 147 / 99; Pulse 88; Resp 16; Pulse Ox 100% on R/A; Height 5 ft. 9 in. ; Pain 6/10; ll1 11:55 BP 129 / 87; Pulse 86; Resp 17; Pulse Ox 100% on R/A; ll1 11:00 Pain Scale: Adult ll1 MDM: 10:56 Medical Screening Exam initiated sb4 11:28 Differential diagnosis: fracture, sprain. Independent interpretation of the following sb4 test(s) in the Emergency Department X-Ray: My interpretation is My interpretation of the right ankle x-ray images is no acute fracture or dislocation of the right ankle. There are postsurgical changes at the right midfoot. Historians other than the Patient: Parent: Mother. 11:48 Data reviewed: vital signs, nurses notes, radiologic studies, and as a result, I will sb4 discharge patient. Counseling: I had a detailed discussion with the patient and/or guardian regarding the historical points, exam findings, and any diagnostic results supporting the discharge/admit diagnosis, radiology results, the need for outpatient follow up, for definitive care, to return to the emergency department if symptoms worsen or persist or if there are any questions or concerns that arise at home. 11/17 11:00 Order name: Ankle Right 3 View XRAY; Complete Time: 11:43 sb4 11/17 11:48 Order name: Bubba Wrap; Complete Time: 11:54 sb4 Administered Medications: No medications were administered Disposition Summary: 11/17/24 11:48 Discharge Ordered Notes: Location: Home sb4 Problem: new sb4 Symptoms: have improved sb4 Condition: Stable sb4 Diagnosis - Sprain of other ligament of right ankle sb4 Followup: sb4 - With: Private Physician - When: As needed - Reason: Recheck today's complaints, Re-evaluation by your physician Discharge Instructions: - Discharge Summary Sheet sb4 - Ankle Sprain, [id number] sb4 Forms: - Work release form sb4 - Patient Portal Instructions sb4 - Leadership Thank You Letter sb4 Signatures: Dispatcher [employer] James Ann RN RN ll1 Hina Barrett, DHAVAL PUENTES sb4
--- NOTE | 2024-11-17 11:48 | ER ---
Nurse's Notes [facility] Name: José Miguel Francis Age: 19 yrs Sex: Female : 2005 Arrival Date: 11/17/2024 Time: 10:38 Bed 11 Private MD: Diagnosis: Sprain of other ligament of right ankle Presentation: 11/17 11:00 Chief complaint: Patient states: Rolled R foot in hole while getting out of a truck ll1 Saturday. Coronavirus screen: Client denies travel out of the [place] in the last 14 days. At this time, the client does not indicate any symptoms associated with coronavirus-19. Ebola Screen: Patient denies travel to an Ebola-affected area in the 21 days before illness onset. Initial Sepsis Screen: Does the patient meet any 2 criteria? No. Patient's initial sepsis screen is negative. Does the patient have a suspected source of infection? No. Patient's initial sepsis screen is negative. Risk Assessment: Do you want to hurt yourself or someone else? Patient reports no desire to harm self or others. Onset of symptoms was November 14, 2024. 11:00 Method Of Arrival: Wheelchair ll1 11:00 Acuity: PILAR 4 ll1 Triage Assessment: 11:01 General: Appears uncomfortable, Behavior is calm, cooperative, appropriate for age. ll1 Pain: Complains of pain in right foot Quality of pain is described as aching. Musculoskeletal: Circulation, motion, and sensation intact. Capillary refill < 3 seconds, in right foot. Reports pain in right foot. Injury Description: Bruise. 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 - Infectious Disease History:: Denies. - Social history:: Smoking status: Reported history of juuling and/or vaping. Screenin:55 [facility] ED Fall Risk Assessment (Adult) History of falling in the last 3 months, ll1 including since admission Yes- single mechanical fall (1 pt) Confusion or Disorientation No (0 pts) Intoxicated or Sedated No (0 pts) Impaired Gait Yes (1 pt) Mobility Assist Device Used No (0 pt) Altered Elimination No (0 pt) Score/Fall Risk Level 3 or more points = High Risk Maintained a safe environment, Hourly rounding (assess needs \T\ fall precautionary measures) done. Abuse screen: Denies threats or abuse. Nutritional screening: No deficits noted. Tuberculosis screening: No symptoms or risk factors identified. Assessment: 11:54 Reassessment: No changes from previously documented assessment. Patient and/or family ll1 updated on plan of care and expected duration. Pain level reassessed. 11:55 Musculoskeletal: Circulation, motion, and sensation intact. Capillary refill < 3 ll1 seconds, in right foot, no toes present. Vital Signs: 11:00 BP 147 / 99; Pulse 88; Resp 16; Pulse Ox 100% on R/A; Height 5 ft. 9 in. ; Pain 6/10; ll1 11:55 BP 129 / 87; Pulse 86; Resp 17; Pulse Ox 100% on R/A; ll1 11:00 Pain Scale: Adult ll1 ED Course: 10:40 Patient arrived in ED. mr 10:42 Hina Barrett PA-C is PHCP. sb4 10:42 Jevon Serna MD is Attending Physician. sb4 11:00 Arm band placed on Patient placed in an exam room, on a stretcher. ll1 11:00 Patient has correct armband on for positive identification. Provided Education on: ER ll1 procedures and process. 11:01 Triage completed. ll1 11:06 James Barragan RN is Primary Nurse. ll1 11:33 Ankle Right 3 View XRAY In Process Unspecified. EDMS 11:55 No provider procedures requiring assistance completed. Patient did not have IV access ll1 during this emergency room visit. Administered Medications: No medications were administered Medication: 13:02 VIS not applicable for this client. ll1 Outcome: 11:48 Discharge ordered by . sb4 11:55 Patient left the ED. ll1 11:55 Discharged to home ambulatory, ll1 11:55 Condition: stable 11:55 Discharge instructions given to patient, Instructed on discharge instructions, follow up and referral plans. Demonstrated understanding of instructions, follow-up care, Signatures: Dispatcher [employer] EDNC Keely Leonardo, Reg Reg mr James Barragan, BERT RN ll1 Brown, Hina, PA-C PA-C sb4
[2024-11-17 12:23] VITALS: BP 147/99; O2SAT 100
== END 2024-11-17 11:55 | disposition home or self-care (01) ==
LOC: ER 10:38
DX: S93.491A Sprain of other ligament of right ankle, initial encounter (principal); X50.1XXA Overexertion from prolonged static or awkward postures, initial encounter; F17.290 Nicotine dependence, other tobacco product, uncomplicated
CPT/HCPCS: 99282